=== PATIENT | male | born 2000 | race Caucasian/White ===

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

== ENCOUNTER 2022-12-26 23:13 | Emergency (ER) | payer SELFPAY ==
[~2022-12-26] VITALS: Ht 188 cm; Wt 68.0 kg
[~2022-12-26 23:13] MED LIST changes: +KEFLEX500 M1 PO; +MEDDOSEPAK PO
[2022-12-26 23:51] VITALS: BP 123/88
[2022-12-27] VITALS: BP 128/87
[2022-12-27 00:15] VITALS: BP 120/78
[2022-12-27 00:30] VITALS: BP 114/77
[2022-12-27 00:45] VITALS: BP 127/69
[2022-12-27] MEDS ORDERED: NAPROXEN500 MG PO (00:51)
[2022-12-27 01:00] VITALS: BP 116/81
[2022-12-27 01:03] VITALS: BP 116/81
== END 2022-12-27 01:09 | disposition home or self-care (01) | DRG 605 ==
LOC: ED 23:13
DX: S90.32XA Contusion of left foot, initial encounter (principal); J45.909 Unspecified asthma, uncomplicated; W20.8XXA Other cause of strike by thrown, projected or falling object, initial encounter; Y92.89 Other specified places as the place of occurrence of the external cause; Y99.0 Civilian activity done for income or pay